=== PATIENT | male | born 1990 | race Two or more races ===

== ENCOUNTER 2024-08-08 13:52 | Emergency (ER) | payer OTHER ==
[~2024-08-08] VITALS: Ht 200.7 cm; Wt 127.2 kg
[~2024-08-08 13:52] MED LIST: HYDR-4902 PO; INSLANTI SC; INSLISPI SC; INSU100I54 SC; MULT-1018 PO; NEOM-48 EX
[2024-08-08 15:18] VITALS: PULSE 90; RESP 16; O2SAT 97
[2024-08-08 15:45] VITALS: BP 106/72; PULSE 98; RESP 16; TEMP 97.8; O2SAT 99
== END 2024-08-08 16:01 | disposition home or self-care (01) ==
LOC: ER 13:52
DX: E11.621 Type 2 diabetes mellitus with foot ulcer (principal); Z98.890 Other specified postprocedural states; Z91.041 Radiographic dye allergy status; Z91.013 Allergy to seafood; Z79.899 Other long term (current) drug therapy

== ENCOUNTER → 2024-09-08 | Outpatient (CLI) | payer OTHER ==
[2024-09-08 09:21] LABS: Basophils # (auto) 0.1 10 ^3/uL (0-0.2); Basophils % (auto) 1.2 % (0.0-2.0); Eosinophils # (auto) 0.3 10 ^3/uL (0-0.8); Eosinophils % (auto) 4.6 % (0.0-7.0); Hematocrit 39.9 % (41.0-53.0); Hemoglobin 13.9 g/dL (13.5-17.5); Lymphocytes # (auto) 1.7 10 ^3/uL (0.4-5.4); Lymphocytes % (auto) 29.1 % (10.0-50.0); Mean Corpuscular Hemoglobin 30.4 pg (28.0-32.0); Mean Corpuscular Hgb Conc. 34.7 g/dL (32.0-36.0); Mean Corpuscular Volume 87.6 fL (80.0-100.0); Monocytes # (auto) 0.7 10 ^3/uL (0-1.3); Monocytes % (auto) 12.6 % (0.0-12.0); Neutrophils # (auto) 3.1 10 ^3/uL (1.6-8.6); Neutrophils % (auto) 52.5 % (37.0-80.0); Platelet Count (auto) 350 10^3/uL (140-450); Red Blood Cells 4.55 10^6/uL (4.5-5.90); Red Cell Distribution Width 13.3 % (11.8-14.3); White Blood Cell 5.9 10^3/uL (4.4-10.8)
[2024-09-08 09:46] LABS: Anion Gap 6 (5-15); Carbon Dioxide 28 mmol/L (20-31); Chloride 104 mmol/L (98-107); Potassium 4.7 mmol/L (3.5-5.1); Sodium 138 mmol/L (136-145)
[2024-09-08 09:47] LABS: Calcium 10.3 mg/dL (8.7-10.4)
[2024-09-08 09:52] LABS: BUN/Creatinine Ratio 13.7 (10.0-20.0); Blood Urea Nitrogen 16 mg/dL (9-23); Glucose 220 mg/dL (74-106)
== END | disposition home or self-care (01) ==
LOC: LAB 08:57
PROVIDERS: ATTEND Specialist
DX: E11.621 Type 2 diabetes mellitus with foot ulcer (principal); L97.509 Non-pressure chronic ulcer of other part of unspecified foot with unspecified severity
CPT/HCPCS: 36415; 80048; 85025